=== PATIENT | male | born 2000 | race Two or more races ===

== ENCOUNTER 2018-05-08 17:38 | Emergency (ER) | payer MEDICAID, OTHER ==
[~2018-05-08] VITALS: Ht 182.9 cm; Wt 99.8 kg
[2018-05-08 18:00] VITALS: BP 137/88
[2018-05-08] MEDS ORDERED: IBUPROFEN 600 MG TAB PO ONE (20:30)
[2018-05-08] MEDS ORDERED: LIDOCAINE 1% HCL (LOCAL ANESTH.) INJ 20ML MDV IJ ONE (22:00)
== END 2018-05-08 22:06 | disposition home or self-care (01) ==
LOC: ER 17:38
DX: S81.012A Laceration without foreign body, left knee, initial encounter (principal); S60.511A Abrasion of right hand, initial encounter; Y08.89XA Assault by other specified means, initial encounter; Y93.89 Activity, other specified; Y99.8 Other external cause status; Y92.89 Other specified places as the place of occurrence of the external cause
CPT/HCPCS: 12001; 73562; 99283; J2001